=== PATIENT | female | born 1940 | race Caucasian/White ===

== ENCOUNTER 2017-06-08 10:47 | Emergency (ER) | payer MEDICARE, OTHER ==
[~2017-06-08] VITALS: Ht 165.1 cm; Wt 61.2 kg
--- NOTE | 2017-06-08 10:53 | NUR ---
PT IS IN ROOM #1B. DR CARDOSO EVALUATED THE PT.
[2017-06-08] MEDS ORDERED: PANT40TA2 PO (11:14)
[2017-06-08] MEDS ORDERED: CALC-494 PO (11:14)
[2017-06-08] MEDS ORDERED: LORA-258 PO (11:14)
[2017-06-08] MEDS ORDERED: EXELON PO (11:14)
[2017-06-08] MEDS ORDERED: QUET25TA PO (11:14)
[2017-06-08] MEDS ORDERED: CRAN425C6 PO (11:14)
[2017-06-08] MEDS ORDERED: ASPI81TA44 PO (11:14)
[2017-06-08] MEDS ORDERED: ACET-2605 PO (11:14)
[2017-06-08] MEDS ORDERED: ACET-2154 PO (11:14)
[2017-06-08] MEDS ORDERED: PSYLLIUM PO (11:14)
[2017-06-08] MEDS ORDERED: BISA10SU12 RC (11:14)
[2017-06-08] MEDS ORDERED: MULT1TAB11 PO (11:14)
[2017-06-08] MEDS ORDERED: LIDOCAINE HCL 1% 20 ML VIAL ONE (11:17)
[2017-06-08] MEDS ORDERED: TDAP DIPH,PERTUSS,TET VAC/PF 0.5 ML DISP.SYRIN IM ONE (11:17)
[2017-06-08 11:26] LABS: BASOPHILS % (AUTO) 0.6 % (0.0-2.0); EOSINOPHILS # (AUTO) 0.3 K/uL (0.0-0.7); EOSINOPHILS % (AUTO) 3.2 % (0.0-7.0); HEMATOCRIT 37.1 % (37-47); HEMOGLOBIN 12.3 G/DL (12.0-16.0); LYMPHOCYTES % (AUTO) 24.5 % (20.5-51.5); MEAN CORPUSCULAR HEMOGLOBIN 30.6 UUG (27.0-31.0); MEAN CORPUSCULAR HGB CONC 33 g/dL (32.0-37.0); MEAN CORPUSCULAR VOLUME 92.7 FL (81.0-99.0); MONOCYTES # (AUTO) 0.6 K/UL (0.1-1.30); MONOCYTES % (AUTO) 7.3 % (0.0-11.0); NEUTROPHILS # (AUTO) 5.4 K/UL (1.8-8.9); NEUTROPHILS % (AUTO) 64.4 % (38.5-71.5); PLATELET COUNT (AUTO) 449 K/UL (150-450); WHITE BLOOD COUNT (AUTO) 8.3 K/UL (4.0-11.2)
[2017-06-08] MEDS: LIDOCAINE HCL 1% 20 ML VIAL TP ONE (11:31)
[2017-06-08] MEDS: TDAP DIPH,PERTUSS,TET VAC/PF 0.5 ML DISP.SYRIN IM ONE (11:31)
[2017-06-08 11:35] LABS: CARBON DIOXIDE 28 mmol/L (21-32); CHLORIDE 108 mmol/L (98-107); CREATININE 0.8 mg/dL (0.6-1.3); GLUCOSE 118 mg/dL (74-106); POTASSIUM 3.6 mmol/L (3.5-5.1); UREA NITROGEN, BLOOD 37 mg/dL (7-18)
[2017-06-08 11:41] LABS: ALANINE AMINOTRANSFERASE 12 U/L (14-59); ALKALINE PHOSPHATASE 97 U/L (50-136); ASPARTATE AMINOTRANSFERASE 16 U/L (15-37); BILIRUBIN,DIRECT 0.1 mg/dL (0.0-0.2); BILIRUBIN,TOTAL 0.2 mg/dL (0.2-1.0); TOTAL PROTEIN, SERUM 7.6 g/dL (6.4-8.2)
--- NOTE | 2017-06-08 13:39 | NUR ---
PT WAS D/C [facility]. REPORT WAS GIVEN TO ALF RN AND TO AMBULANCE TEAM.
[2017-06-08 13:41] VITALS: BP 136/75
== END 2017-06-08 13:41 | disposition home or self-care (01) ==
LOC: ER 10:47
DX: S01.81XA Laceration without foreign body of other part of head, initial encounter (principal); Z79.82 Long term (current) use of aspirin; Z88.0 Allergy status to penicillin; Z88.1 Allergy status to other antibiotic agents; Z88.6 Allergy status to analgesic agent; Z91.010 Allergy to peanuts; I10 Essential (primary) hypertension; I25.10 Atherosclerotic heart disease of native coronary artery without angina pectoris; K21.9 Gastro-esophageal reflux disease without esophagitis; M79.7 Fibromyalgia; F02.81 Dementia in other diseases classified elsewhere, unspecified severity, with behavioral disturbance; W22.8XXA Striking against or struck by other objects, initial encounter; Y93.E1 Activity, personal bathing and showering; Y92.9 Unspecified place or not applicable; Y99.9 Unspecified external cause status
CPT/HCPCS: 36415; 70030-TC; 70450; 85025; 85730; 90715; 93005; A4217; A4663; J3490